=== PATIENT | male | born 1975 | race Caucasian/White ===

== ENCOUNTER 2018-05-13 13:49 | Emergency (ER) | payer OTHER, SELFPAY ==
[2018-05-13 13:56] VITALS: BP 133/88; PULSE 62; RESP 18; TEMP 36.8; O2SAT 100; BMI 27.8
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
[2018-05-13 16:02] VITALS: BP 134/95; PULSE 64; RESP 14; O2SAT 100
== END 2018-05-13 16:08 | disposition home or self-care (01) ==
PROVIDERS: Emergency Provider Nurse Practitioner Family
DX: S00.90XA Unspecified superficial injury of unspecified part of head, initial encounter (principal); M54.2 Cervicalgia; V47.6XXA Car passenger injured in collision with fixed or stationary object in traffic accident, initial encounter
CPT/HCPCS: 70450; 72125; 99282; 99284

== ENCOUNTER → 2023-10-14 12:04 | Outpatient (CLI) | payer OTHER, SELFPAY ==
[2023-10-14 18:57] LABS: Cholesterol 239 mg/dL (140-199); Glucose 98 mg/dL (70-100); HDL Cholesterol 64 mg/dL (40-60); LDL Cholesterol Calculated 151 mg/dL (<100); Triglycerides 119 mg/dL (35-150)
== END ==
PROVIDERS: PCP Family Medicine; Visit Provider Family Medicine
DX: Z13.220 Encounter for screening for lipoid disorders (principal); Z13.1 Encounter for screening for diabetes mellitus
CPT/HCPCS: 80061; 82947